=== PATIENT | male | born 1990 | race Caucasian/White ===

== ENCOUNTER 2018-02-25 17:11 | Inpatient (IN) | payer BC, OTHER ==
[2018-02-25] VITALS (8 sets, daily range): BP systolic 113–125; BP diastolic 66–98
[~2018-02-25] VITALS: Ht 182.9 cm; Wt 56.9 kg
[~2018-02-25 17:11] MED LIST: ACHD5005 PO; HYDR118S10 PO; IBP800T PO; NAPR-243 PO
--- OUTSIDE RECORDS SUMMARY | 2018-02-25 17:17 | XMS REPORT | Continuity of Care Document ---
Author Author [facility] Organization [facility] Address Unknown Phone Unavailable Allergies Active Description Code Type Severity Reaction Onset Reported/Identified Relationship to Patient Clinical Status Yes No Known Drug Allergies [id number] Drug Allergy Unknown N/A 06/13/2011 Medications There is no data. Problems Date Dx Coded Attending Type Code Diagnosis Diagnosed By 08/10/2014 Ot 840.9 08/10/2014 Ot 959.2 08/10/2014 Ot E000.8 08/10/2014 Ot E816.1 Procedures There is no data. Results There is no data. Encounters ACCT No. Visit Date/Time Discharge Status Pt. Type Provider Facility Loc./Unit Complaint [id number] 12/21/2012 16:25:00 12/21/2012 18:10:00 DIS Emergency [id number] 08/10/2014 08:40:00 Document Registration
[2018-02-25] MEDS ORDERED: fentaNYL INJECTION 100 MCG/2 ML AMP IVP ONE ×4 (17:30→19:30)
[2018-02-25] MEDS ORDERED: ONDANSETRON 4 MG/2 ML (SDV) Z0FRAN ONE (17:34)
[2018-02-25] MEDS ORDERED: LORazepam INJ 2 MG/ML (ATIVAN) VIAL ONE (17:34)
[2018-02-25] MEDS ORDERED: NS IV 1000 ML 1,000 ML ONE (17:35)
[2018-02-25] MEDS ORDERED: LIDOCAINE 1% INJ 20 ML 20 ML VIAL ONE (17:41)
[2018-02-25 17:45] LABS: BASOPHILS % (AUTO) 0 % (0-10); EOSINOPHILS % (AUTO) 0 % (0-10); HEMATOCRIT 45 % (40-54); HEMOGLOBIN 15.7 G/DL (13.3-17.7); LYMPHOCYTES # (AUTO) 1.6 X 10^3 (1.0-4.0); LYMPHOCYTES % (AUTO) 9 % (12-44); MEAN CORPUSCULAR HEMOGLOBIN 32 PG (25-34); MEAN CORPUSCULAR HGB CONC 35 G/DL (32-36); MEAN CORPUSCULAR VOLUME 93 FL (80-99); MEAN PLATELET VOLUME 9.2 FL (7.4-10.4); MONOCYTES # (AUTO) 1.3 X 10^3 (0.0-1.0); MONOCYTES % (AUTO) 8 % (0-12); NEUTROPHILS # (AUTO) 13.9 X 10^3 (1.8-7.8); NEUTROPHILS % (AUTO) 82 % (42-75); PLATELET COUNT 262 10^3/uL (130-400); RED BLOOD COUNT 4.91 10^6/uL (4.35-5.85); RED CELL DISTRIBUTION WIDTH 12.9 % (10.0-14.5); WHITE BLOOD COUNT 16.9 10^3/uL (4.3-11.0)
[2018-02-25] MEDS ORDERED: ONDANSETRON 4 MG/2 ML (SDV) Z0FRAN IVP ONE (17:45)
[2018-02-25] MEDS ORDERED: LORazepam INJ 2 MG/ML (ATIVAN) VIAL IVP ONE (17:45)
[2018-02-25] MEDS ORDERED: KETAMINE HCL 100 MG/ML 5 ML VIAL IV ONE (17:45)
[2018-02-25] MEDS: NS IV 1000 ML 1,000 ML IV SCH (17:47)
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
[2018-02-25 18:03] LABS: ALANINE AMINOTRANSFERASE 28 U/L (0-55); ALBUMIN 5.1 GM/DL (3.2-4.5); ALKALINE PHOSPHATASE 40 U/L (40-136); BILIRUBIN,TOTAL 0.7 MG/DL (0.1-1.0); BUN/CREATININE RATIO 13; CALCIUM 10.1 MG/DL (8.5-10.1); CARBON DIOXIDE 23 MMOL/L (21-32); CHLORIDE 110 MMOL/L (98-107); CREATININE SERUM 0.97 MG/DL (0.60-1.30); GFR ESTIMATED > 60; GLUCOSE 122 MG/DL (70-105); POTASSIUM 4.1 MMOL/L (3.6-5.0); SODIUM 142 MMOL/L (135-145); TOTAL PROTEIN 7.8 GM/DL (6.4-8.2)
[2018-02-25 18:11] LABS: BAND NEUTROPHILS 0 %; BASOPHILS % (MANUAL) 0 %; EOSINOPHILS % (MANUAL) 0 %; LYMPHOCYTES % (MANUAL) 15 %; MONOCYTES % (MANUAL) 6 %; NEUTROPHILS % (MANUAL) 79 %; RBC MORPH NORMAL
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
[2018-02-25] MEDS ORDERED: NS 250 ML (IVPB) BAG IV ONE (18:45)
[2018-02-25] MEDS ORDERED: IOHEXOL 350 MG/ML 100 ML (OMNIPAQUE 350) VIAL IV ONE (18:45)
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
[2018-02-25] MEDS ORDERED: TETANUS,DIPTH,PERTUSS P/F (BOOSTRIX) 0.5 ML VIAL IM ONE (19:15)
[2018-02-25 19:33] LABS: ALANINE AMINOTRANSFERASE 28 U/L (0-55); ALBUMIN 5.1 GM/DL (3.2-4.5); ALKALINE PHOSPHATASE 38 U/L (40-136); BILIRUBIN,DIRECT 0.4 MG/DL (0.0-0.3); BILIRUBIN,INDIRECT 0.4 MG/DL; BILIRUBIN,TOTAL 0.8 MG/DL (0.1-1.0); BUN/CREATININE RATIO 13; CALCIUM 10.3 MG/DL (8.5-10.1); CARBON DIOXIDE 21 MMOL/L (21-32); CHLORIDE 109 MMOL/L (98-107); CREATININE SERUM 0.97 MG/DL (0.60-1.30); GFR ESTIMATED > 60; GLUCOSE 121 MG/DL (70-105); POTASSIUM 4.1 MMOL/L (3.6-5.0); SODIUM 141 MMOL/L (135-145); TOTAL PROTEIN 7.6 GM/DL (6.4-8.2)
[2018-02-25 19:45] LABS: BILIRUBIN,URINE NEGATIVE (NEGATIVE); CLARITY,URINE CLEAR; COLOR,URINE YELLOW; GLUCOSE, URINE (UA) NEGATIVE (NEGATIVE); KETONES,URINE 1+ (NEGATIVE); LEUKOCYTE ESTERASE ,URINE NEGATIVE (NEGATIVE); NITRITE,URINE NEGATIVE (NEGATIVE); PH,URINE 5 (5-9); PROTEIN,URINE 2+ (NEGATIVE); UROBILINOGEN,URINE NORMAL (NORMAL)
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
[2018-02-25 20:08] LABS: RBC,URINE RARE /HPF
[2018-02-25] MEDS: HYDROcodone/APAP 7.5 MG/325 MG (LORTAB, LORCET PLUS) TABLET PO PRN (21:53)
[2018-02-25] MEDS ORDERED: KETOROLAC 15 MG/ML VIAL IV PRN (22:00)
[2018-02-25] MEDS ORDERED: fentaNYL INJECTION 100 MCG/2 ML AMP IV PRN (22:00)
[2018-02-25] MEDS ORDERED: ACETAMINOPHEN 325 MG TABLET PO PRN (22:00)
[2018-02-25] MEDS ORDERED: ONDANSETRON 4 MG/2 ML (SDV) Z0FRAN IV PRN (22:00)
[2018-02-25] MEDS: ceFAZolin 1 GM/NS 50 ML IVPB IV SCH ×2 (22:36)
[2018-02-26] VITALS (18 sets, daily range): BP systolic 100–152; BP diastolic 56–96
[2018-02-26] MEDS ORDERED: RT-ALBUTEROL SULF 2.5 MG/3 ML PRE-MIX VIAL INH PRN
[2018-02-26] MEDS: HYDROcodone/APAP 7.5 MG/325 MG (LORTAB, LORCET PLUS) TABLET PO PRN ×3 (03:05→16:09)
[2018-02-26] MEDS: fentaNYL INJECTION 100 MCG/2 ML AMP IV PRN ×4 (03:05→23:30)
[2018-02-26] MEDS: NS IV 1000 ML 1,000 ML IV SCH ×2 (03:24→14:34)
[2018-02-26 03:34] LABS: BASOPHILS % (AUTO) 0 % (0-10); EOSINOPHILS # (AUTO) 0.1 10^3/uL (0.0-0.3); EOSINOPHILS % (AUTO) 1 % (0-10); HEMATOCRIT 41 % (40-54); HEMOGLOBIN 14.3 G/DL (13.3-17.7); LYMPHOCYTES # (AUTO) 2.8 X 10^3 (1.0-4.0); LYMPHOCYTES % (AUTO) 25 % (12-44); MEAN CORPUSCULAR HEMOGLOBIN 33 PG (25-34); MEAN CORPUSCULAR HGB CONC 35 G/DL (32-36); MEAN CORPUSCULAR VOLUME 94 FL (80-99); MEAN PLATELET VOLUME 9.4 FL (7.4-10.4); MONOCYTES # (AUTO) 1.2 X 10^3 (0.0-1.0); MONOCYTES % (AUTO) 11 % (0-12); NEUTROPHILS # (AUTO) 7.2 X 10^3 (1.8-7.8); NEUTROPHILS % (AUTO) 63 % (42-75); PLATELET COUNT 199 10^3/uL (130-400); RED BLOOD COUNT 4.33 10^6/uL (4.35-5.85); RED CELL DISTRIBUTION WIDTH 12.7 % (10.0-14.5); WHITE BLOOD COUNT 11.4 10^3/uL (4.3-11.0)
[2018-02-26 03:52] LABS: BUN/CREATININE RATIO 16; CALCIUM 9.2 MG/DL (8.5-10.1); CARBON DIOXIDE 21 MMOL/L (21-32); CHLORIDE 108 MMOL/L (98-107); CREATININE SERUM 0.88 MG/DL (0.60-1.30); GFR ESTIMATED > 60; GLUCOSE 90 MG/DL (70-105); MAGNESIUM 2.5 MG/DL (1.8-2.4); PHOSPHORUS 4.1 MG/DL (2.3-4.7); POTASSIUM 3.9 MMOL/L (3.6-5.0); SODIUM 140 MMOL/L (135-145)
[2018-02-26] MEDS: ceFAZolin 1 GM/NS 50 ML IVPB IV SCH ×6 (05:50→21:19)
[2018-02-26] MEDS ORDERED: KCL 20 MEQ TAB (K-DUR) PO SCH (06:00)
[2018-02-26] MEDS ORDERED: MAGNESIUM 1 GM/100 ML IVPB 100 ML IV SCH (06:00)
[2018-02-26] MEDS ORDERED: POTASSIUM CL 10MEQ/50ML IVPB 50 ML IV SCH (06:00)
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
--- NOTE | 2018-02-26 06:52 | Diagnostic Imaging Report ---
INDICATION: Followup pneumothorax. COMPARISON: 02/25/2018. FINDINGS: Trace right apical pneumothorax persists. Lungs are clear. No pleural effusion. Normal pulmonary vasculature. IMPRESSION: Persistent trace right apical pneumothorax. Dictated by: Dictated on workstation # [id number]
[2018-02-26] MEDS ORDERED: FLU QUADRIvalent (5+ YOA) 2018-2019 (AFLURIA) 0.5 ML IM ONE (07:30)
[2018-02-26] MEDS: RT-ALBUTEROL SULF 2.5 MG/3 ML PRE-MIX VIAL INH SCH ×2 (08:13→20:05)
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
--- NOTE | 2018-02-26 14:06 | Diagnostic Imaging Report ---
INDICATION: Chest tube followup. TECHNIQUE: A frontal chest was obtained at 1:38 PM. COMPARISON: Same day at 3:13 AM. FINDINGS: The small-caliber chest tube over the right superior chest is again noted. The tiny right apical pneumothorax is unchanged compared to the previous study. The lungs are otherwise clear. There is no pleural fluid. IMPRESSION: The small-caliber right chest tube remains in place with the tiny right apical pneumothorax unchanged from earlier today. Dictated by: Dictated on workstation # [id number]
--- NOTE | 2018-02-26 16:06 | Diagnostic Imaging Report ---
EXAMINATION: Portable erect AP chest at 03:41 p.m. INDICATION: Pneumothorax. FINDINGS: The exam performed earlier today at 01:38 p.m. noted a small-caliber chest tube in place on the right with a tiny right apical pneumothorax. On this exam, the chest tube remains in place. The pneumothorax, itself, however is difficult to identify and may have nearly completely, if not completely, resolved. The overall appearance of the chest is otherwise stable. IMPRESSION: The tiny right apical pneumothorax seen previously is not well appreciated on this exam. The pneumothorax may have nearly completely, if not completely, resolved. A followup exam should be obtained for continued evaluation. Dictated by: Dictated on workstation # [id number]
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
[2018-02-27] MEDS: fentaNYL INJECTION 100 MCG/2 ML AMP IV PRN ×3 (03:51→10:33)
[2018-02-27 04:09] VITALS: BP 120/55
[2018-02-27] MEDS: ceFAZolin 1 GM/NS 50 ML IVPB IV SCH ×6 (05:31→21:34)
--- NOTE | 2018-02-27 07:41 | Diagnostic Imaging Report ---
INDICATION: Pneumothorax. COMPARISON: 02/26/2018 FINDINGS: Single frontal view of the chest demonstrates normal heart size and pulmonary vascularity. Small bore chest tube is again identified on the right. There may be trace residual right apical pneumothorax. This is estimated at less than 10%. No pneumothorax is seen on the left. No large effusion is identified on either side. There is no focal consolidation. Bony structures are stable. IMPRESSION: 1. Indwelling small bore right-sided chest tube with perhaps trace right apical pneumothorax. Dictated by: Dictated on workstation # [id number]
[2018-02-27 08:13] VITALS: BP 110/75
[2018-02-27] MEDS: RT-ALBUTEROL SULF 2.5 MG/3 ML PRE-MIX VIAL INH SCH (09:19)
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
[2018-02-27 12:00] VITALS: BP 115/68
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
[2018-02-27 15:25] VITALS: BP 120/69
--- NOTE | 2018-02-27 15:48 | Diagnostic Imaging Report ---
INDICATION: Pneumothorax. EXAMINATION: Inspiratory and expiratory views of the chest were obtained. FINDINGS: On the expiratory image there is a right apical pneumothorax visible that measures 4 mm in thickness. Right thoracostomy tube is again noted. IMPRESSION: Tiny right pneumothorax which appears slightly smaller than earlier in the day. Dictated by: Dictated on workstation # [id number]
[2018-02-27] MEDS: HYDROcodone/APAP 7.5 MG/325 MG (LORTAB, LORCET PLUS) TABLET PO PRN (17:31)
[2018-02-27 19:44] VITALS: BP 117/56
[2018-02-28] VITALS: BP 112/69
[2018-02-28] MEDS: HYDROcodone/APAP 7.5 MG/325 MG (LORTAB, LORCET PLUS) TABLET PO PRN ×3 (00:10→14:35)
[2018-02-28] MEDS: RT-ALBUTEROL SULF 2.5 MG/3 ML PRE-MIX VIAL INH SCH ×2 (00:49→06:50)
[2018-02-28 04:00] VITALS: BP 111/63
[2018-02-28] MEDS: ceFAZolin 1 GM/NS 50 ML IVPB IV SCH ×4 (05:33→14:47)
[2018-02-28 08:00] VITALS: BP 127/57
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
--- NOTE | 2018-02-28 09:09 | Diagnostic Imaging Report ---
INDICATION: Right-sided pneumothorax. TECHNIQUE: Single view chest 4:30 AM. CORRELATION STUDY: 02/27/2018 FINDINGS: Small catheter tubing over the right lung apex. There appears to be a tiny right apical pneumothorax remaining. Right lung field clear. Left lung unremarkable. Heart size and mediastinum are stable. IMPRESSION: 1. Tiny residual right apical pneumothorax. Dictated by: Dictated on workstation # [id number]
[2018-02-28 12:00] VITALS: BP 117/72
[2018-02-28] MEDS ORDERED: ACHD5005 PO (16:37)
--- NOTE | 2018-02-28 16:41 | Discharge Inst-Simple/Standard ---
Discharge Inst-Standard Discharge Medications New, Converted or Re-Newed RX: RX on Chart Patient Instructions/Follow Up Plan of Care/Instructions/FU: Saturday morning you will have a chest x-ray and then follow up with Dr. Rush at 1 in his office. Any shortness of breath, chest pain or if tube falls out be seen in the emergenyc dept immediately. Activity as Tolerated: No Discharge Diet: Regular Diet Other Inst to Patient Follow up Appt: Adri on Saturday after having chest x ray performed. Instructions: No lifting greater than 10 pounds. No strenuous activity. No Smoking Skin/Wound Care: Keep area clean and dry. Symptoms to Report: Appetite Changes, Extremity Discoloration, Numbness/Tingling, Swelling Increased , Bleeding Excessive, Eyesight Changes, Pain Increased, Urine Color Change, Constipation(Persistent), Fever over 101 degree F, Pain/Pressure in chest, Urinating Difficulty, Cough Up/Vomit Blood, Heart Beat Irreg/Pounding, Pain/ Pressure in jaw, Vaginal Bleeding Increase, Cramps in feet or legs, Lightheadedness, Pain/Pressure in shoulder, Diarrhea(Persistent), Memory Changes Suddenly, Questions/Concerns, Weight gain consecutive days, Dizziness/ Fainting, Nausea/Vomiting, Shortness of Breath, Weight gain over 2 pounds If questions or concerns contact your physician Or seek help at emergency department. LUCIO RUSH DO Feb 28, 2018 16:41
[2018-02-28 17:20] VITALS: BP 117/72
--- OUTSIDE RECORDS SUMMARY | 2018-03-03 12:52 | XMS REPORT | Continuity of Care Document ---
Author Author [facility] Organization [facility] Address Unknown Phone Unavailable Allergies Active Description Code Type Severity Reaction Onset Reported/Identified Relationship to Patient Clinical Status Yes No Known Drug Allergies [id number] Drug Allergy Unknown N/A 06/13/2011 Medications There is no data. Problems Date Dx Coded Attending Type Code Diagnosis Diagnosed By 08/10/2014 Ot 840.9 08/10/2014 Ot 959.2 08/10/2014 Ot E000.8 08/10/2014 Ot E816.1 Procedures There is no data. Results Test Result Range Complete blood count (CBC) with automated white blood cell (WBC) differential - 02/25/18 17:30 Blood leukocytes automated count (number/volume) 16.9 10*3/uL 4.3-11.0 Blood erythrocytes automated count (number/volume) 4.91 10*6/uL 4.35-5.85 Venous blood hemoglobin measurement (mass/volume) 15.7 g/dL 13.3-17.7 Blood hematocrit (volume fraction) 45 % 40-54 Automated erythrocyte mean corpuscular volume 93 [foz_us] 80-99 Automated erythrocyte mean corpuscular hemoglobin (mass per erythrocyte) 32 pg 25-34 Automated erythrocyte mean corpuscular hemoglobin concentration measurement ( mass/volume) 35 g/dL 32-36 Automated erythrocyte distribution width ratio 12.9 % 10.0-14.5 Automated blood platelet count (count/volume) 262 10*3/uL 130-400 Automated blood platelet mean volume measurement 9.2 [foz_us] 7.4-10.4 Automated blood neutrophils/100 leukocytes 82 % 42-75 Automated blood lymphocytes/100 leukocytes 9 % 12-44 Blood monocytes/100 leukocytes 8 % 0-12 Automated blood eosinophils/100 leukocytes 0 % 0-10 Automated blood basophils/100 leukocytes 0 % 0-10 Blood neutrophils automated count (number/volume) 13.9 10*3 1.8-7.8 Blood lymphocytes automated count (number/volume) 1.6 10*3 1.0-4.0 Blood monocytes automated count (number/volume) 1.3 10*3 0.0-1.0 Automated eosinophil count 0.0 10*3/uL 0.0-0.3 Automated blood basophil count (count/volume) 0.0 10*3/uL 0.0-0.1 Comprehensive metabolic panel - 02/25/18 17:30 Serum or plasma sodium measurement (moles/volume) 142 mmol/L 135-145 Serum or plasma potassium measurement (moles/volume) 4.1 mmol/L 3.6-5.0 Serum or plasma chloride measurement (moles/volume) 110 mmol/L 98-107 Carbon dioxide 23 mmol/L 21-32 Serum or plasma anion gap determination (moles/volume) 9 mmol/L 5-14 Serum or plasma urea nitrogen measurement (mass/volume) 13 mg/dL 7-18 Serum or plasma creatinine measurement (mass/volume) 0.97 mg/dL 0.60-1.30 Serum or plasma urea nitrogen/creatinine mass ratio 13 NRG Serum or plasma creatinine measurement with calculation of estimated glomerular filtration rate > NRG Serum or plasma glucose measurement (mass/volume) 122 mg/dL 70-105 Serum or plasma calcium measurement (mass/volume) 10.1 mg/dL 8.5-10.1 Serum or plasma total bilirubin measurement (mass/volume) 0.7 mg/dL 0.1-1.0 Serum or plasma alkaline phosphatase measurement (enzymatic activity/volume) 40 U/L 40-136 Serum or plasma aspartate aminotransferase measurement (enzymatic activity/ volume) 24 U/L 5-34 Serum or plasma alanine aminotransferase measurement (enzymatic activity/volume ) 28 U/L 0-55 Serum or plasma protein measurement (mass/volume) 7.8 g/dL 6.4-8.2 Serum or plasma albumin measurement (mass/volume) 5.1 g/dL 3.2-4.5 Blood manual differential performed detection - 02/25/18 17:30 Blood monocytes/100 leukocytes 6 % NRG Manual blood segmented neutrophils/100 leukocytes 79 % NRG Blood band neutrophils/100 leukocytes 0 % NRG Manual blood lymphocytes/100 leukocytes 15 % NRG Manual eosinophils/100 leukocytes in nose 0 % NRG Manual blood basophils/100 leukocytes 0 % NRG Blood erythrocyte morphology finding identification NORMAL NRG Liver function panel (serum or plasma alk phos, alb, total and direct bili, total protein, ALT, AST) - 02/25/18 17:30 Serum or plasma total bilirubin measurement (mass/volume) 0.8 mg/dL 0.1-1.0 Serum or plasma alkaline phosphatase measurement (enzymatic activity/volume) 38 U/L 40-136 Serum or plasma aspartate aminotransferase measurement (enzymatic activity/ volume) 24 U/L 5-34 Serum or plasma alanine aminotransferase measurement (enzymatic activity/volume ) 28 U/L 0-55 Serum or plasma protein measurement (mass/volume) 7.6 g/dL 6.4-8.2 Serum or plasma albumin measurement (mass/volume) 5.1 g/dL 3.2-4.5 Bilirubin direct 0.4 mg/dL 0.0-0.3 Serum or plasma indirect bilirubin measurement (mass/volume) 0.4 mg/ dL NR Whole blood basic metabolic panel - 02/25/18 17:30 Serum or plasma sodium measurement (moles/volume) 141 mmol/L 135-145 Serum or plasma potassium measurement (moles/volume) 4.1 mmol/L 3.6-5.0 Serum or plasma chloride measurement (moles/volume) 109 mmol/L 98-107 Carbon dioxide 21 mmol/L 21-32 Serum or plasma anion gap determination (moles/volume) 11 mmol/L 5-14 Serum or plasma urea nitrogen measurement (mass/volume) 13 mg/dL 7-18 Serum or plasma creatinine measurement (mass/volume) 0.97 mg/dL 0.60-1.30 Serum or plasma urea nitrogen/creatinine mass ratio 13 NRG Serum or plasma creatinine measurement with calculation of estimated glomerular filtration rate > NRG Serum or plasma glucose measurement (mass/volume) 121 mg/dL 70-105 Serum or plasma calcium measurement (mass/volume) 10.3 mg/dL 8.5-10.1 Serum or plasma ethanol measurement (mass/volume) - 02/25/18 17:30 Serum or plasma ethanol measurement (mass/volume) < mg/dL <10 Complete urinalysis with reflex to culture - 02/25/18 19:29 Urine color determination YELLOW NRG Urine clarity determination CLEAR NRG Urine pH measurement by test strip 5 5-9 Specific gravity of urine by test strip 1.015 1.016- 1.022 Urine protein assay by test strip, semi-quantitative 2+ NEGATIVE Urine glucose detection by automated test strip NEGATIVE NEGATIVE Erythrocytes detection in urine sediment by light microscopy NEGATIVE NEGATIVE Urine ketones detection by automated test strip 1+ NEGATIVE Urine nitrite detection by test strip NEGATIVE NEGATIVE Urine total bilirubin detection by test strip NEGATIVE NEGATIVE Urine urobilinogen measurement by automated test strip (mass/volume) NORMAL NORMAL Urine leukocyte esterase detection by dipstick NEGATIVE NEGATIVE Automated urine sediment erythrocyte count by microscopy (number/high power field) RARE NRG Automated urine sediment leukocyte count by microscopy (number/high power field ) NONE NRG Bacteria detection in urine sediment by light microscopy NONE NRG Crystals detection in urine sediment by light microscopy NONE NRG Casts detection in urine sediment by light microscopy NONE NRG Mucus detection in urine sediment by light microscopy SMALL NRG Complete urinalysis with reflex to culture NO NRG Methicillin resistant Staphylococcus aureus (MRSA) screening culture - 21:10 Methicillin resistant Staphylococcus aureus (MRSA) screening culture NEG NRG Complete blood count (CBC) with automated white blood cell (WBC) differential - 02/26/18 02:55 Blood leukocytes automated count (number/volume) 11.4 10*3/uL 4.3-11.0 Blood erythrocytes automated count (number/volume) 4.33 10*6/uL 4.35-5.85 Venous blood hemoglobin measurement (mass/volume) 14.3 g/dL 13.3-17.7 Blood hematocrit (volume fraction) 41 % 40-54 Automated erythrocyte mean corpuscular volume 94 [foz_us] 80-99 Automated erythrocyte mean corpuscular hemoglobin (mass per erythrocyte) 33 pg 25-34 Automated erythrocyte mean corpuscular hemoglobin concentration measurement ( mass/volume) 35 g/dL 32-36 Automated erythrocyte distribution width ratio 12.7 % 10.0-14.5 Automated blood platelet count (count/volume) 199 10*3/uL 130-400 Automated blood platelet mean volume measurement 9.4 [foz_us] 7.4-10.4 Automated blood neutrophils/100 leukocytes 63 % 42-75 Automated blood lymphocytes/100 leukocytes 25 % 12-44 Blood monocytes/100 leukocytes 11 % 0-12 Automated blood eosinophils/100 leukocytes 1 % 0-10 Automated blood basophils/100 leukocytes 0 % 0-10 Blood neutrophils automated count (number/volume) 7.2 10*3 1.8-7.8 Blood lymphocytes automated count (number/volume) 2.8 10*3 1.0-4.0 Blood monocytes automated count (number/volume) 1.2 10*3 0.0-1.0 Automated eosinophil count 0.1 10*3/uL 0.0-0.3 Automated blood basophil count (count/volume) 0.0 10*3/uL 0.0-0.1 Whole blood basic metabolic panel - 02/26/18 02:55 Serum or plasma sodium measurement (moles/volume) 140 mmol/L 135-145 Serum or plasma potassium measurement (moles/volume) 3.9 mmol/L 3.6-5.0 Serum or plasma chloride measurement (moles/volume) 108 mmol/L 98-107 Carbon dioxide 21 mmol/L 21-32 Serum or plasma anion gap determination (moles/volume) 11 mmol/L 5-14 Serum or plasma urea nitrogen measurement (mass/volume) 14 mg/dL 7-18 Serum or plasma creatinine measurement (mass/volume) 0.88 mg/dL 0.60-1.30 Serum or plasma urea nitrogen/creatinine mass ratio 16 NRG Serum or plasma creatinine measurement with calculation of estimated glomerular filtration rate > NRG Serum or plasma glucose measurement (mass/volume) 90 mg/dL 70-105 Serum or plasma calcium measurement (mass/volume) 9.2 mg/dL 8.5-10.1 Serum or plasma phosphate measurement (mass/volume) - 02/26/18 02:55 Serum or plasma phosphate measurement (mass/volume) 4.1 mg/dL 2.3-4.7 Magnesium - 02/26/18 02:55 Magnesium 2.5 mg/dL 1.8-2.4 Encounters ACCT No. Visit Date/Time Discharge Status Pt. Type Provider Facility Loc./Unit Complaint [id number] 12/21/2012 16:25:00 12/21/2012 18:10:00 DIS Emergency [id number] 02/25/2018 17:45:00 Document Registration [id number] 08/10/2014 08:40:00 Document Registration
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
== END 2018-02-28 17:20 | disposition home or self-care (01) | DRG 201 ==
LOC: EDUNIT# 17:11 → ER 17:12 → UNDOADMOB 19:50 → ICU 19:50 → 4TH 02-26 15:05 → ICU 02-26 15:05 → 4TH 02-26 15:05 → UNDODISOB 02-28 17:20
PROVIDERS: ADMIT Surgery; ATTEND Surgery
PROC: 0W9930Z Drainage of Right Pleural Cavity with Drainage Device, Percutaneous Approach (ICD-10-PCS; principal; 2018-02-25)
DX: S27.0XXA Traumatic pneumothorax, initial encounter (principal); S42.031A Displaced fracture of lateral end of right clavicle, initial encounter for closed fracture; S20.211A Contusion of right front wall of thorax, initial encounter; S80.11XA Contusion of right lower leg, initial encounter; F17.210 Nicotine dependence, cigarettes, uncomplicated; H26.9 Unspecified cataract; Z87.828 Personal history of other (healed) physical injury and trauma; H54.62 Unqualified visual loss, left eye, normal vision right eye; V47.1XXA Car passenger injured in collision with fixed or stationary object in nontraffic accident, initial encounter; Y92.410 Unspecified street and highway as the place of occurrence of the external cause
CPT/HCPCS: 32551; 36415; 70450; 71045; 71046; 71260; 72125; 74177; 80048; 80053; 80076; 80320; 81000; 83735; 84100; 85007; 85025; 85027; 87081; 90471; 90715; 93005; 93041; 94640; 96374; 96375; 96376; 99291

== ENCOUNTER → 2018-03-03 | Outpatient (CLI) | payer SELFPAY ==
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
== END ==
LOC: RAD 19:02
PROVIDERS: ATTEND Surgery
DX: J93.9 Pneumothorax, unspecified (principal); V89.2XXA Person injured in unspecified motor-vehicle accident, traffic, initial encounter
CPT/HCPCS: 71046

== ENCOUNTER → 2018-03-03 | Outpatient (CLI) | payer OTHER ==
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
== END ==
LOC: RAD 09:21
PROVIDERS: ATTEND Surgery
DX: R06.02 Shortness of breath (principal); Z87.828 Personal history of other (healed) physical injury and trauma
CPT/HCPCS: 71046

== ENCOUNTER → 2018-03-04 | Outpatient (CLI) | payer OTHER ==
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
== END ==
LOC: RAD 11:09
PROVIDERS: ATTEND Surgery
DX: S27.0XXA Traumatic pneumothorax, initial encounter (principal); V89.2XXA Person injured in unspecified motor-vehicle accident, traffic, initial encounter
CPT/HCPCS: 71045

== ENCOUNTER 2022-09-13 22:36 | Emergency (ER) | payer SELFPAY ==
[~2022-09-13] VITALS: Ht 182.9 cm; Wt 63.5 kg
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
[2022-09-13 23:33] VITALS: BP 112/65
== END 2022-09-13 23:34 | disposition home or self-care (01) ==
LOC: EDUNIT# 22:36 → ER 22:39
DX: S01.511A Laceration without foreign body of lip, initial encounter (principal); Z28.310 Unvaccinated for COVID-19; W50.0XXA Accidental hit or strike by another person, initial encounter
CPT/HCPCS: 12052